=== PATIENT | male | born 1935 | race Two or more races ===

== ENCOUNTER 2018-02-18 20:14 | Inpatient (IN) | payer OTHER, MEDICARE ==
[~2018-02-18] VITALS: Ht 157.5 cm; Wt 68.5 kg
[2018-02-18] MEDS ORDERED: DIPH25CA83 PO (20:45)
[2018-02-18] MEDS ORDERED: OMEP20CA10 PO (20:45)
[2018-02-18] MEDS ORDERED: ATOR40TA PO (20:45)
[2018-02-18] MEDS ORDERED: IBUP-1953 PO (20:45)
[2018-02-18] MEDS ORDERED: MAGN400O6 PO (20:45)
[2018-02-18] MEDS ORDERED: BISA10SU61 RC (20:45)
[2018-02-18] MEDS ORDERED: ACET-2154 PO (20:45)
[2018-02-18] MEDS ORDERED: TAMS-3 PO (20:45)
[2018-02-18] MEDS ORDERED: BENZ1LOZ58 MM (20:45)
[2018-02-18] MEDS ORDERED: FINA5TAB11 PO (20:45)
[2018-02-18] MEDS ORDERED: HYDR-3972 PO (20:45)
[2018-02-18] MEDS ORDERED: DOCU-141 PO (20:45)
[2018-02-18] MEDS ORDERED: PANT40TA2 PO (20:45)
[2018-02-18] MEDS ORDERED: SENN-18 PO (20:45)
[2018-02-18] MEDS ORDERED: AZEL6DRO5 OP (20:45)
[2018-02-18] MEDS ORDERED: MAG355OR18 PO (20:45)
[2018-02-18] MEDS ORDERED: ASPI-612 PO (20:45)
[2018-02-18] MEDS ORDERED: CLON0.1T PO (20:45)
[2018-02-18] MEDS ORDERED: Z GUARD REMEDY PASTE 57 GM TUBE TOP PRN (21:00)
[2018-02-18] MEDS ORDERED: ACETAMINOPHEN 325 MG TABLET PO PRN (21:15)
[2018-02-18 21:25] VITALS: BP 152/72
[2018-02-18] MEDS: HYDROCODONE/APAP 5-325MG TABLET PO PRN (23:18)
--- NOTE | 2018-02-19 00:02 | NUR ---
received from [facility] an 82 year old male with admitting diagnosis of Left total knee arthroplasty. [id number] able to follow commands. patient speaks azeri only. Left knee dressing intact, antwon in placed, no drainage noted, slightly swollen. medicated with [place] as ordered. fall precautions maintained. call reyes within results. will monitor patient.
--- NOTE | 2018-02-19 06:59 | NUR ---
quiet night. slept most of the shift. needs attended. kept comfortable. voiding but sometimes gets incontinent at times. kept clean and dry.
[2018-02-19 08:09] VITALS: BP 166/86
[2018-02-19] MEDS: ASPIRIN 325 MG TABLET PO SCH ×2 (09:27→17:20)
[2018-02-19] MEDS: FINASTERIDE 5 MG TABLET PO SCH (09:28)
[2018-02-19] MEDS: DOCUSATE SODIUM 100 MG CAPSULE PO SCH ×2 (09:28→17:21)
--- NOTE | 2018-02-19 09:51 | NUR ---
INTERDISCIPLINARY TEAM CONFERENCE
--- NOTE | 2018-02-19 10:21 | NUR ---
WOUND CARE CONSULT WOUND CARE RECEIVED CONSULT FOR LEFT KNEE INCISION SITE, NO ORDER FOR DRESSING CHANGE FROM [facility]. COVERING MACHINE OPERATOR HELPER SPOKE WITH STAFF NURSE. WOUND CARE WILL DEFER INCISION SITE CARE TO ORTHO MD AT THIS TIME.
[2018-02-19] MEDS: HYDROCODONE/APAP 5-325MG TABLET PO PRN (11:25)
[2018-02-19 15:44] VITALS: BP 139/74
[2018-02-19] MEDS: AMLODIPINE 5 MG TABLET PO SCH (18:11)
--- NOTE | 2018-02-19 18:42 | NUR ---
PATIENT RECEIVED IN BED ASLEEP, EASILY AROUSED. NO ACUTE DISTRESS NOTED, NO COMPLAINTS OF PAIN/DISCOMFORT AT THIS TIME. DRESSING STILL INTACT. ALL NEEDS ATTENDED AND ANTICIPATED. COMFORT MEASURES PROVIDED. PT SESSION TODAY WELL TOLERATED. CALLED [employer] TO OBTAIN ORDER FOR DRESSING CHANGE, ORDERS NOTED AND CARRIED OUT. WILL CONTINUE TO MONITOR CLOSELY.
[2018-02-19 20:39] VITALS: BP 152/70
[2018-02-19] MEDS: PANTOPRAZOLE SODIUM 40 MG TABLET.DR PO SCH (20:49)
[2018-02-19] MEDS: TAMSULOSIN HCL 0.4 MG CAP.SR.24H PO SCH (20:50)
[2018-02-19] MEDS: ATORVASTATIN 40 MG TABLET PO SCH (20:50)
[2018-02-19] MEDS: SENNOSIDES 1 TABLET PO SCH (20:50)
--- NOTE | 2018-02-20 00:16 | NUR ---
Patient received lying in bed comfortably. He is Kazakh speaking. His was at beside and can speak Syriac. Awake, alert, and oriented x 3. No acute distress or SOB. No complain of pain. Med given as ordered. All needs were attended and anticipated. Fall precaution maintained. Two upper side rails up for safety, bed alarm and brake on for safety. Call light within reach. Will continue to monitor.
[2018-02-20] MEDS: HYDROCODONE/APAP 5-325MG TABLET PO PRN ×2 (04:26→10:46)
--- NOTE | 2018-02-20 04:56 | NUR ---
In the hourly round, the patient wasn't sleep, he complained of leg pain and also chest pain without radiation. No acute distress noted. He rated 8 out of 10 on numeric scale for his pain. Denies feeling heaviness on the chest and radiation to left arm and jaw. Patient placed on 2 liter O2 through nasal canula and head of the bed elevated. Per patient states that he has been having chest pain for the past 3 years, also states that he believes the pain from his knee is causing his chest pain. [place] 5-325 was given. vital signs was checked with IL 105, BP131/87, RR 18, O2 sat 96%, T 98.6. SUSAN Caba was called and informed of patient condition, with new orders of STAT EKG, Troponin x1, and cardiology consult in am. Orders noted and carried out, Safety maintained, call light within reach, will continue to monitor.
[2018-02-20 05:31] LABS: BASOPHILS # (AUTO) 0.1 K/uL (0.0-8.0); BASOPHILS % (AUTO) 0.7 % (0.0-2.0); EOSINOPHILS # (AUTO) 0.4 K/uL (0.0-0.7); EOSINOPHILS % (AUTO) 4.1 % (0.0-7.0); HEMATOCRIT 26.7 % (36.7-47.1); HEMOGLOBIN 9.4 g/dL (12.5-16.3); LYMPHOCYTES # (AUTO) 1.9 K/uL (20.0-40.0); MEAN CORPUSCULAR HEMOGLOBIN 31.8 uug (23.8-33.4); MEAN CORPUSCULAR HGB CONC 35 g/dL (32.5-36.3); MEAN CORPUSCULAR VOLUME 90.3 fL (73.0-96.2); MONOCYTES % (AUTO) 11.6 % (0.0-11.0); NEUTROPHILS # (AUTO) 5.4 K/uL (1.8-8.9); NEUTROPHILS % (AUTO) 61.6 % (38.5-71.5); PLATELET COUNT (AUTO) 222 K/uL (152-348); RED BLOOD CELL COUNT(AUTO) 2.95 MIL/uL (4.06-5.63); WHITE BLOOD COUNT (AUTO) 8.7 K/uL (3.6-10.2)
[2018-02-20 05:38] LABS: CARBON DIOXIDE 26 mmol/L (21-32); CHLORIDE 105 mmol/L (98-107); CREATININE 0.9 mg/dL (0.6-1.3); GLUCOSE 131 mg/dL (74-106); POTASSIUM 3.7 mmol/L (3.5-5.1); UREA NITROGEN, BLOOD 18 mg/dL (7-18)
--- NOTE | 2018-02-20 05:43 | NUR ---
The patient was checked again, he is lying on bed comfortably has nasal canula in placed with O2 at 2 Liter. No acute distress, no complain of chest pain or knee pain, vital sign checked again with BP 148/79, CA 98, RR 18, O2 sat 96%, T 98.6. Will continue to monitor.
[2018-02-20 06:07] VITALS: BP 148/79
[2018-02-20 08:27] VITALS: BP 144/72
[2018-02-20] MEDS: DOCUSATE SODIUM 100 MG CAPSULE PO SCH ×2 (09:19→17:26)
[2018-02-20] MEDS: FINASTERIDE 5 MG TABLET PO SCH (09:19)
[2018-02-20] MEDS: MAGNESIUM HYDROXIDE 30 ML LIQUID UDC PO SCH (09:19)
[2018-02-20] MEDS: ASPIRIN 325 MG TABLET PO SCH ×2 (09:19→17:26)
[2018-02-20] MEDS: AMLODIPINE 5 MG TABLET PO SCH (09:19)
[2018-02-20 16:03] VITALS: BP 140/72
--- NOTE | 2018-02-20 18:23 | NUR ---
PATIENT HAS BEEN COOPERATIVE WITH CARE, AND PARTICIPATED IN THERAPY. PATIENT HAD BREAKTHROUGH PAIN DURING THERAPY, BUT HAS RESOLVED AT THIS TIME. CURRENTLY PATIENT IN BED, NO DISTRESS NOTED. BED IN LOW POSITION, SIDE RAILS UP X2. WOUND CARE CONSULT PLACED FOR SKIN TEARS. USED CARE WHEN REMOVING DRESSING, UTILIZED ADHESIVE REMOVER TO AVOID SKIN TEARS.
--- NOTE | 2018-02-20 20:00 | NUR ---
Patient received lying in bed comfortably. He is Angolan speaking. Awake, alert, and oriented x 3. No acute distress or SOB. No complain of pain. Med given as ordered. All needs were attended and anticipated. Fall precaution maintained. Two upper side rails up for safety, bed alarm and brake on for safety. Call light within reach. Will continue to monitor.
[2018-02-20 20:29] VITALS: BP 140/70
[2018-02-20] MEDS: SENNOSIDES 1 TABLET PO SCH (21:45)
[2018-02-20] MEDS: PANTOPRAZOLE SODIUM 40 MG TABLET.DR PO SCH (21:45)
[2018-02-20] MEDS: ATORVASTATIN 40 MG TABLET PO SCH (21:45)
[2018-02-20] MEDS: TAMSULOSIN HCL 0.4 MG CAP.SR.24H PO SCH (21:45)
[2018-02-21 05:40] VITALS: BP 152/71
[2018-02-21] MEDS: FINASTERIDE 5 MG TABLET PO SCH (08:06)
[2018-02-21 08:07] VITALS: BP 147/67
[2018-02-21] MEDS: ASPIRIN 325 MG TABLET PO SCH ×2 (08:07→17:41)
[2018-02-21] MEDS: AMLODIPINE 5 MG TABLET PO SCH (08:07)
[2018-02-21] MEDS: DOCUSATE SODIUM 100 MG CAPSULE PO SCH ×2 (08:07→17:41)
[2018-02-21] MEDS: MAGNESIUM HYDROXIDE 30 ML LIQUID UDC PO SCH (17:41)
[2018-02-21] MEDS: HYDROCODONE/APAP 5-325MG TABLET PO PRN ×2 (17:41→21:36)
--- NOTE | 2018-02-21 18:47 | NUR ---
PATIENT HAS BEEN COOPERATIVE WITH CARE, EXPERIENCED INTERMITTENT PAIN THROUGHOUT THE DAY WHICH WAS RELIEVED BY MEDICATION. CURRENTLY PATIENT IN BED, NO DISTRESS NOTED, BED IN LOW POSITION, SIDE RAILS UP X2, CALL LIGHT WITHIN REACH. PATIENT HAD A DIETARY CONSULT THIS SHIFT, AND RECOMMENDATIONS MADE ACCORDINGLY.
[2018-02-21 20:09] VITALS: BP 137/73
[2018-02-21] MEDS: TAMSULOSIN HCL 0.4 MG CAP.SR.24H PO SCH (21:35)
[2018-02-21] MEDS: SENNOSIDES 1 TABLET PO SCH (21:35)
[2018-02-21] MEDS: PANTOPRAZOLE SODIUM 40 MG TABLET.DR PO SCH (21:35)
[2018-02-21] MEDS: ATORVASTATIN 40 MG TABLET PO SCH (21:35)
[2018-02-22 05:23] VITALS: BP 139/68
[2018-02-22 08:39] VITALS: BP 140/69
[2018-02-22] MEDS: DOCUSATE SODIUM 100 MG CAPSULE PO SCH ×2 (09:07→16:18)
[2018-02-22] MEDS: FINASTERIDE 5 MG TABLET PO SCH (09:07)
[2018-02-22] MEDS: ASPIRIN 325 MG TABLET PO SCH ×2 (09:07→16:18)
[2018-02-22] MEDS: AMLODIPINE 5 MG TABLET PO SCH (09:08)
[2018-02-22] MEDS: NEOMY/BACITRAC/POLYMI OINT 28.35 GM TUBE TOP SCH ×2 (09:11→16:21)
[2018-02-22] MEDS: HYDROCODONE/APAP 5-325MG TABLET PO PRN ×2 (09:25→16:19)
--- NOTE | 2018-02-22 10:48 | NUR ---
SBAR report received, board updated. Pt assessed, no acute distress noted or SOB. Pain reported of 8/10 to left knee, and 10/10 to left toe, c/o gout flair up starting last night. MD fuel distribution system operator paged, left message regarding concern, will follow up. Pt compliant with routine medication administration, including [place] for pain. All comfort and safety measures implemented. Bed in locked and lowest position, side rails up x2. Call light and personal belongings placed within reach. Will continue to monitor.
--- NOTE | 2018-02-22 18:57 | NUR ---
Pt seen by MD, new orders received. No distress during this shift. visiting at bedside. All needs promptly attended to. Call light within reach. Will continue to monitor and endorse to on coming material handler 2nd shift.
[2018-02-22 19:30] VITALS: BP 148/78
--- NOTE | 2018-02-22 20:00 | NUR ---
QUIET,SPEAKS CZECH,NO SPANISH. LEFT TOTAL KNEE DRESSINGS DRY AND INTACT WITH SOME REDNESS NOTED ON THE SIDES,BRUISE NOTED IN THE LEFT INNER THIGH.PT INSTRUCTED NOT TO GET OUT OF BED,PT WEAK UNABLE TO STAND UP.PT USES URINAL.PT IS A FALL PRECAUTION.
[2018-02-22] MEDS: SENNOSIDES 1 TABLET PO SCH (20:12)
[2018-02-22] MEDS: ATORVASTATIN 40 MG TABLET PO SCH (20:12)
[2018-02-22] MEDS: TAMSULOSIN HCL 0.4 MG CAP.SR.24H PO SCH (20:12)
[2018-02-22] MEDS: PANTOPRAZOLE SODIUM 40 MG TABLET.DR PO SCH (20:12)
[2018-02-22] MEDS: OXYCODONE HCL 10 MG TAB.SR.12H PO SCH (20:12)
[2018-02-22] MEDS: MAGNESIUM HYDROXIDE 30 ML LIQUID UDC PO SCH (20:13)
--- NOTE | 2018-02-23 06:40 | NUR ---
SLEPT AT LONG INTERVALS.USES URINAL.NO COMPLAINTS MADE
[2018-02-23 07:15] VITALS: BP 130/76
--- NOTE | 2018-02-23 08:00 | NUR ---
pt seen on rounding. pt vitals stable. no new injuries. pt given meds whole for pain. no sob noted. pt used incentive spirometer to deep breathe. will continue to monitor.
[2018-02-23] MEDS: NEOMY/BACITRAC/POLYMI OINT 28.35 GM TUBE TOP SCH ×2 (09:00→17:23)
[2018-02-23] MEDS: ASPIRIN 325 MG TABLET PO SCH ×2 (09:21→17:23)
[2018-02-23] MEDS: OXYCODONE HCL 10 MG TAB.SR.12H PO SCH ×2 (09:22→20:48)
[2018-02-23] MEDS: FINASTERIDE 5 MG TABLET PO SCH (09:22)
[2018-02-23] MEDS: DOCUSATE SODIUM 100 MG CAPSULE PO SCH ×2 (09:22→17:23)
[2018-02-23] MEDS: AMLODIPINE 5 MG TABLET PO SCH (09:23)
[2018-02-23] MEDS: HYDROCODONE/APAP 10-325 MG TABLET PO PRN ×2 (09:25→17:24)
[2018-02-23 10:10] VITALS: BP_SYST 108; BP_SYST 131; BP_SYST 132; BP_DIAS 59; BP_DIAS 66; BP_DIAS 73
[2018-02-23 16:00] VITALS: BP 118/69
--- NOTE | 2018-02-23 18:02 | NUR ---
pt stable throughout the day. vitals stable. pt encouraged to use incentive spirometer and tolerates. pulse ox normal. no signs of hypoxemia. pt used cpm machine according to PT recommendations. pt given pain meds with machine so pt can tolerate pain. assessed blisters. no signs of bleeding. applied triple antibiotic as scheduled. no signs of drainage. encouraged patient to do own exercises. pt verbalizes understanding. will endorse to tariff clerk nurse.
[2018-02-23] MEDS ORDERED: BISACODYL 5 MG TABLET.DR PO PRN (18:30)
[2018-02-23 20:13] VITALS: BP 132/63
[2018-02-23] MEDS: TAMSULOSIN HCL 0.4 MG CAP.SR.24H PO SCH (20:47)
[2018-02-23] MEDS: ATORVASTATIN 40 MG TABLET PO SCH (20:47)
[2018-02-23] MEDS: SENNOSIDES 1 TABLET PO SCH (20:48)
[2018-02-23] MEDS: PANTOPRAZOLE SODIUM 40 MG TABLET.DR PO SCH (20:48)
[2018-02-24 05:23] VITALS: BP 139/68
--- NOTE | 2018-02-24 06:39 | NUR ---
Pt SLEPT WELL THROUGHOUT THE NIGHT, CONTINUES TO BE COMPLIANT WITH MEDS AND CARE STAFF THIS MORNING. PICTURES OF WOUNDS WERE TAKEN AND PLACED IN CHART, NO DISTRESS NOTED, DENIES PAIN, DRESSING ON SURGICAL SITE CHANGED THIS MORNING. IN STABLE CONDITION. EMPHASIZED SAFETY, BED AT LOWEST POSITION WITH WHEELS LOCKED AND SIDE RAILS UP X 2.
--- NOTE | 2018-02-24 08:12 | NUR ---
I agree Addendum: 02/24/18 at 0813 by SHERICE BARNETT OT Amended: Links added.
--- NOTE | 2018-02-24 08:13 | NUR ---
I agree Addendum: 02/24/18 at 0814 by SHERICE BARNETT OT Amended: Links added.
[2018-02-24 08:26] VITALS: BP 127/71
[2018-02-24] MEDS: DOCUSATE SODIUM 100 MG CAPSULE PO SCH ×2 (08:27→16:26)
[2018-02-24] MEDS: ASPIRIN 325 MG TABLET PO SCH ×2 (08:27→16:26)
[2018-02-24] MEDS: FINASTERIDE 5 MG TABLET PO SCH (08:28)
[2018-02-24] MEDS: AMLODIPINE 5 MG TABLET PO SCH (08:28)
[2018-02-24] MEDS: OXYCODONE HCL 10 MG TAB.SR.12H PO SCH ×2 (08:29→20:30)
[2018-02-24] MEDS: NEOMY/BACITRAC/POLYMI OINT 28.35 GM TUBE TOP SCH ×2 (08:33→17:09)
--- NOTE | 2018-02-24 10:29 | NUR ---
SBAR report received, board updated. Pt assessed, no acute distress noted, reports pain upon ambulation. Routinely scheduled pain medication administered per orders, medicated prior to participating with therapy. Pt compliant with all routine medication administration and nursing care. Plan of care for today discussed. Bed in locked and lowest position, with side rails up x2. Call light within reach. All comfort and safety measures met. Will continue to monitor.
[2018-02-24] MEDS: MAGNESIUM HYDROXIDE 30 ML LIQUID UDC PO SCH (15:05)
--- NOTE | 2018-02-24 17:46 | NUR ---
All Pt safety and comfort needs attended to promptly. No change in pt condition. Family visiting at bedside. MOM administered per PRN constipation orders. Call light placed within reach. Will continue to monitor and endorse to oncoming overnight houseperson.
[2018-02-24 20:13] VITALS: BP 140/64
[2018-02-24] MEDS: TAMSULOSIN HCL 0.4 MG CAP.SR.24H PO SCH (20:28)
[2018-02-24] MEDS: PANTOPRAZOLE SODIUM 40 MG TABLET.DR PO SCH (20:28)
[2018-02-24] MEDS: ATORVASTATIN 40 MG TABLET PO SCH (20:28)
[2018-02-24] MEDS: SENNOSIDES 1 TABLET PO SCH (20:28)
--- NOTE | 2018-02-24 23:42 | NUR ---
RECEIVED Pt IN BED, AWAKE AND WATCHING TV, A/O X 4. REPORTS A 5/10 PAIN ON LEFT KNEE WHERE SURGICAL INCISION IS LOCATED, NO PRN MEDS GIVEN FOR PAIN SINCE Pt RECEIVE OXYCONTIN 10 MG PO Q12HR. Pt TOLERATED MEDS WELL, CONTINUES TO BE COMPLIANT WITH STAFF AND PLAN OF CARE. EMPHASIZED SAFETY, BED AT LOWEST POSITION WITH WHEELS LOCKED AN SIDE RAILS UP X 2. CALL LIGHT WITHIN REACH.
[2018-02-25 05:50] VITALS: BP 148/73
[2018-02-25] MEDS: HYDROCODONE/APAP 10-325 MG TABLET PO PRN (06:26)
--- NOTE | 2018-02-25 06:45 | NUR ---
NURSING STAFF FOUND Pt WANDERING ON HALLWAY WITH HIS WALKER. WHEN ASKED IF HE NEEDED ASSISTANCE, Pt WAS NOTED CONFUSED AND ASKING, "WHERE AM I? WHO BROUGHT ME HERE?" Pt DID NOT HAVE ANY PREVIOUS SIGNS AND SYMPTOMS OF DISORIENTATION AND/OR CONFUSION. Pt WAS ASSESSED, NO INDICATION OF INJURIES TO THE HEAD. NOTIFIED DR. WEBB OF RECENT FINDINGS, RECEIVED ORDERS TO COLLECT URINE FOR UA/C&S. NURSE COLLECTED URINE SPECIMEN AND SENT TO THE LAB. WILL ENDORSE TO DAY SHIFT TO MONITOR RESULTS. Pt COMPLAINED OF 8/10 PAIN ON SURGICAL INCISION ON THE LEFT KNEE. ADMINISTERED NORCO 10-325 PO PRN FOR PAIN. Pt DID NOT HAVE A BOWEL MOVEMENT THROUGHOUT SHIFT, MILK OF MAGNESIA ADMINISTERED BY DAY SHIFT YESTERDAY WAS NOT EFFECTIVE. ADMINISTERED BISACODYL 10 MG PO PRN FOR CONSTIPATION. WILL ENDORSE TO DAY SHIFT NURSE TO MONITOR.
[2018-02-25 07:33] VITALS: BP 175/63
[2018-02-25] MEDS: ASPIRIN 325 MG TABLET PO SCH ×2 (08:52→16:47)
[2018-02-25] MEDS: OXYCODONE HCL 10 MG TAB.SR.12H PO SCH ×2 (08:53→20:22)
[2018-02-25] MEDS: AMLODIPINE 5 MG TABLET PO SCH (08:53)
[2018-02-25] MEDS: DOCUSATE SODIUM 100 MG CAPSULE PO SCH ×2 (08:55→16:47)
[2018-02-25] MEDS: NEOMY/BACITRAC/POLYMI OINT 28.35 GM TUBE TOP SCH ×2 (08:55→16:52)
[2018-02-25] MEDS: FINASTERIDE 5 MG TABLET PO SCH (08:55)
[2018-02-25 10:55] LABS: *BILIRUBIN,URIN NEGATIVE (NEGATIVE); *BLOOD, URINE NEGATIVE (NEGATIVE); *CLARITY,URINE CLEAR (CLEAR); *COLOR,URINE YELLOW (YELLOW); *KETONES,URINE NEGATIVE (NEGATIVE); *PROTEIN,URINE TRACE (NEGATIVE); *UROBILINOGEN,URINE 0.2 E.U./dl (NORMAL); LEUKOCYTE ESTERASE ,URINE NEGATIVE (NEGATIVE); NITRITE, URINE NEGATIVE (NEGATIVE); UGLUCOSE NEGATIVE (NEGATIVE)
[2018-02-25 11:01] LABS: BACTERIA,URINE FEW /HPF (NONE SEEN); RBC,URINE 0-3 /HPF (0-3); SQUAMOUS EPITHELIAL CELL,UR FEW /HPF (NONE SEEN); WBC,URINE 0-3 /HPF (0-3)
[2018-02-25 15:06] VITALS: BP 118/62
[2018-02-25] MEDS: ATORVASTATIN 40 MG TABLET PO SCH (20:20)
[2018-02-25] MEDS: TAMSULOSIN HCL 0.4 MG CAP.SR.24H PO SCH (20:22)
[2018-02-25] MEDS: PANTOPRAZOLE SODIUM 40 MG TABLET.DR PO SCH (20:22)
[2018-02-25] MEDS: SENNOSIDES 1 TABLET PO SCH (20:22)
[2018-02-25 20:23] VITALS: BP 157/70
--- NOTE | 2018-02-25 21:05 | NUR ---
1900 PT RESTING IN ROOM . PT APPEARS COMFORTABLE. 2100 PT WATCHING TV Addendum: 02/26/18 at 0103 by Irina Kay RN 2300 pt ambulated to restroom . pt tolerated well with fww. 0100 pt resting in room Addendum: 02/26/18 at 0546 by Irina Kay RN 0300 pt urinated x1. stand by assist, 0545 pt asleep.
[2018-02-25 21:31] VITALS: BP 139/86
[2018-02-26 05:51] VITALS: BP 132/73
[2018-02-26 07:20] LABS: BASOPHILS # (AUTO) 0.1 K/uL (0.0-8.0); EOSINOPHILS # (AUTO) 0.3 K/uL (0.0-0.7); MEAN CORPUSCULAR VOLUME 90.2 fL (73.0-96.2)
[2018-02-26 07:26] LABS: ALANINE AMINOTRANSFERASE 38 U/L (16-63); ALKALINE PHOSPHATASE 74 U/L (50-136); ASPARTATE AMINOTRANSFERASE 26 U/L (15-37); BILIRUBIN,TOTAL 1.1 mg/dL (0.2-1.0); CARBON DIOXIDE 28 mmol/L (21-32); CHLORIDE 100 mmol/L (98-107); CHOLESTEROL 93 mg/dL (<200); CREATININE 1.1 mg/dL (0.6-1.3); GLUCOSE 125 mg/dL (74-106); HDL CHOLESTEROL 34 mg/dL (40-60); MAGNESIUM 2.1 mg/dL (1.8-2.4); POTASSIUM 4.6 mmol/L (3.5-5.1); TOTAL PROTEIN, SERUM 7.2 g/dL (6.4-8.2); TRIGLYCERIDES 71 MG/DL (30-150); UREA NITROGEN, BLOOD 26 mg/dL (7-18)
[2018-02-26 07:27] LABS: IRON, SERUM 36 ug/dL (50-175)
[2018-02-26 07:42] LABS: BASOPHILS % (AUTO) 0.7 % (0.0-2.0); EOSINOPHILS % (AUTO) 2.5 % (0.0-7.0); HEMATOCRIT 29.3 % (36.7-47.1); HEMOGLOBIN 10.2 g/dL (12.5-16.3); LYMPHOCYTES # (AUTO) 2.3 K/uL (20.0-40.0); LYMPHOCYTES % (AUTO) 17.9 % (20.5-51.5); MEAN CORPUSCULAR HEMOGLOBIN 31.3 uug (23.8-33.4); MEAN CORPUSCULAR HGB CONC 35 g/dL (32.5-36.3); MONOCYTES # (AUTO) 1.2 K/uL (2.0-10.0); MONOCYTES % (AUTO) 9.3 % (0.0-11.0); NEUTROPHILS # (AUTO) 8.8 K/uL (1.8-8.9); NEUTROPHILS % (AUTO) 69.6 % (38.5-71.5); RED BLOOD CELL COUNT(AUTO) 3.25 MIL/uL (4.06-5.63)
[2018-02-26 07:44] LABS: PLATELET COUNT (AUTO) 476 K/uL (152-348); WHITE BLOOD COUNT (AUTO) 12.6 K/uL (3.6-10.2)
[2018-02-26 08:00] VITALS: BP 126/60
[2018-02-26] MEDS: ASPIRIN 325 MG TABLET PO SCH ×2 (08:34→17:02)
[2018-02-26] MEDS: DOCUSATE SODIUM 100 MG CAPSULE PO SCH ×2 (08:34→17:02)
[2018-02-26] MEDS: AMLODIPINE 5 MG TABLET PO SCH (08:35)
[2018-02-26] MEDS: FINASTERIDE 5 MG TABLET PO SCH (08:35)
[2018-02-26] MEDS: OXYCODONE HCL 10 MG TAB.SR.12H PO SCH ×2 (08:36→21:14)
[2018-02-26] MEDS: NEOMY/BACITRAC/POLYMI OINT 28.35 GM TUBE TOP SCH ×2 (08:40→17:02)
--- NOTE | 2018-02-26 10:15 | NUR ---
SBAR report received, board updated. Pt assessed, denies pain and no SOB evident. Incisional wound care provided as ordered to left knee. Incision appears to be healing well with no s/s of infection. Pt assisted up for therapy, BP dropped to 86/46 while sitting for breakfast. BP up to 170/78, hr 89, O2 95% on RA upon returning to lay down in bed. MD notified, no new orders received. Pt complaint with all routinely scheduled medications. Bed in locked and lowest position with side rails up x2. Call light placed within reach. Will continue to monitor and endorse to oncoming media/instructional designer.
--- NOTE | 2018-02-26 15:51 | NUR ---
INTERDISCIPLINARY TEAM CONFERENCE
[2018-02-26 16:04] VITALS: BP 149/70
--- NOTE | 2018-02-26 18:37 | NUR ---
No change in Pt status. All comfort and safety needs promptly attended to throughout this shift. Family currently visiting at bedside. Pt assisted to restroom for voiding and BMx1. Call light placed within reach. Pt seen by MD, no new orders received at this time. Will continue to monitor and endorse to oncoming night nurse.
[2018-02-26] MEDS ORDERED: hydrALAZINE HCL 25 MG TABLET PO PRN (19:15)
[2018-02-26 19:30] VITALS: BP 130/69
[2018-02-26] MEDS: ATORVASTATIN 40 MG TABLET PO SCH (21:13)
[2018-02-26] MEDS: SENNOSIDES 1 TABLET PO SCH (21:13)
[2018-02-26] MEDS: PANTOPRAZOLE SODIUM 40 MG TABLET.DR PO SCH (21:16)
[2018-02-26] MEDS: MIDODRINE HCL 5 MG TABLET PO SCH (21:16)
[2018-02-26] MEDS: TAMSULOSIN HCL 0.4 MG CAP.SR.24H PO SCH (21:22)
[2018-02-27 00:10] VITALS: BP 135/67
--- NOTE | 2018-02-27 06:40 | NUR ---
Pt SLEPT WELL THROUGHOUT THE NIGHT, CONTINUES TO BE COMPLIANT WITH MEDS AND CARE STAFF THIS MORNING. NO DISTRESS NOTED, DENIES PAIN. IN STABLE CONDITION. EMPHASIZED SAFETY, BED AT LOWEST POSITION WITH WHEELS LOCKED AND SIDE RAILS UP X 2.
[2018-02-27 08:17] VITALS: BP 150/70
[2018-02-27] MEDS: MIDODRINE HCL 5 MG TABLET PO SCH ×2 (09:00→20:10)
[2018-02-27] MEDS: ASPIRIN 325 MG TABLET PO SCH ×2 (09:10→17:53)
[2018-02-27] MEDS: OXYCODONE HCL 10 MG TAB.SR.12H PO SCH ×2 (09:12→20:09)
[2018-02-27] MEDS: DOCUSATE SODIUM 100 MG CAPSULE PO SCH ×2 (09:12→17:53)
[2018-02-27] MEDS: FINASTERIDE 5 MG TABLET PO SCH (09:12)
[2018-02-27] MEDS: NEOMY/BACITRAC/POLYMI OINT 28.35 GM TUBE TOP SCH ×2 (09:12→17:56)
[2018-02-27 15:49] VITALS: BP 141/72
[2018-02-27 19:30] VITALS: BP 160/85
[2018-02-27] MEDS: PANTOPRAZOLE SODIUM 40 MG TABLET.DR PO SCH (20:08)
[2018-02-27] MEDS: SENNOSIDES 1 TABLET PO SCH (20:08)
[2018-02-27] MEDS: ATORVASTATIN 40 MG TABLET PO SCH (20:08)
[2018-02-27] MEDS: TAMSULOSIN HCL 0.4 MG CAP.SR.24H PO SCH (20:08)
--- NOTE | 2018-02-27 20:56 | NUR ---
Received pt resting comfortably in bed. Turkish speaking. No acute distress noted. Bed alarm on. Encouraged use of call light. Safety measures maintained. Call light and personal belongings within reach. Will continue to monitor.
[2018-02-28 06:55] VITALS: BP 130/68
[2018-02-28 07:06] VITALS: BP 152/76
[2018-02-28] MEDS: MIDODRINE HCL 5 MG TABLET PO SCH ×2 (09:00→20:35)
[2018-02-28] MEDS: FINASTERIDE 5 MG TABLET PO SCH (09:23)
[2018-02-28] MEDS: DOCUSATE SODIUM 100 MG CAPSULE PO SCH ×2 (09:23→17:27)
[2018-02-28] MEDS: ASPIRIN 325 MG TABLET PO SCH ×2 (09:23→17:26)
[2018-02-28] MEDS: METOPROLOL TARTRATE 25 MG TABLET PO SCH ×2 (09:25→20:35)
[2018-02-28] MEDS: OXYCODONE HCL 10 MG TAB.SR.12H PO SCH ×2 (09:25→20:34)
[2018-02-28] MEDS: NEOMY/BACITRAC/POLYMI OINT 28.35 GM TUBE TOP SCH ×2 (09:37→17:27)
--- NOTE | 2018-02-28 10:25 | NUR ---
SBAR report received, board updated. Pt assessed, SOB or acute distress, upon returning from PT. BP 125/79, HR 105 O2 96% when sitting. VS reevaluated after ambulation, while sitting BP 121/71, HR 135 by machine, manual HR 105. Scheduled Midodrine medication held r/t MD orders. Pt reports pain to left knee incision 8/10 from and during ambulation with therapy. Pain medication administered as scheduled. Pt compliant with all medication administration this morning. Ice packs refilled and placed around knee. Therapist assisted with implementing CPM. Bed in locked and lowest position, with side rails up x2. Bed alarm on. Call light and fluids placed within reach. Will continue to monitor.
[2018-02-28] MEDS: HYDROCODONE/APAP 5-325MG TABLET PO PRN (11:17)
[2018-02-28 16:10] VITALS: BP 119/68
--- NOTE | 2018-02-28 18:25 | NUR ---
All safety and comfort needs met promptly this shift. Incisional dressings changed. Incision shows no s/s of infection. Pt denies pain at this time. Call light placed within reach. Bed alarm on. Will continue to monitor and endorse to oncoming night shift manager.
[2018-02-28 19:30] VITALS: BP 139/63
[2018-02-28] MEDS: TAMSULOSIN HCL 0.4 MG CAP.SR.24H PO SCH (20:33)
[2018-02-28] MEDS: SENNOSIDES 1 TABLET PO SCH (20:33)
[2018-02-28] MEDS: ATORVASTATIN 40 MG TABLET PO SCH (20:34)
[2018-02-28] MEDS: PANTOPRAZOLE SODIUM 40 MG TABLET.DR PO SCH (20:34)
--- NOTE | 2018-03-01 06:33 | NUR ---
Pt SLEPT WELL THROUGHOUT THE NIGHT, CONTINUES TO BE COMPLIANT WITH MEDS AND CARE STAFF. HELD MIDODRINE LAST NIGHT DUE TO ELEVATED BLOOD PRESSURE. TOLERATED OTHER MEDS WELL. NO PRN PAIN MEDS GIVEN, Pt IN STABLE CONDITION.
--- NOTE | 2018-03-01 07:57 | NUR ---
SBAR report received, board updated. Pt assessed, no acute distress noted. All comfort and safety measures met at this time. Plan for today discussed. Bed in locked and lowest position with side rails up x2. Call light placed within reach. Will continue to monitor.
[2018-03-01 08:26] VITALS: BP 136/67
[2018-03-01] MEDS: DOCUSATE SODIUM 100 MG CAPSULE PO SCH ×2 (08:48→16:47)
[2018-03-01] MEDS: ASPIRIN 325 MG TABLET PO SCH ×2 (08:48→16:47)
[2018-03-01] MEDS: FINASTERIDE 5 MG TABLET PO SCH (08:48)
[2018-03-01] MEDS: MIDODRINE HCL 5 MG TABLET PO SCH ×2 (08:49→20:37)
[2018-03-01] MEDS: METOPROLOL TARTRATE 25 MG TABLET PO SCH ×2 (08:49→20:37)
[2018-03-01] MEDS: OXYCODONE HCL 10 MG TAB.SR.12H PO SCH ×2 (08:51→20:36)
[2018-03-01] MEDS: NEOMY/BACITRAC/POLYMI OINT 28.35 GM TUBE TOP SCH ×2 (08:55→18:15)
[2018-03-01] MEDS: HYDROCODONE/APAP 5-325MG TABLET PO PRN (16:48)
--- NOTE | 2018-03-01 18:36 | NUR ---
Pt has remained in stable condition throughout this shift. Incisional wound care provided as ordered. No s/s of infection. All safety and comfort needs met promptly. Call light placed within reach. Will continue to monitor and endorse to on coming material handler 2nd shift.
[2018-03-01 19:30] VITALS: BP 127/65
--- NOTE | 2018-03-01 19:50 | NUR ---
Pt sitting on the bed. Family at bedside. AAO x2. Malay speaking. No acute distress noted. Pt uses urinal to void. Voiding clear yellow colored urine. Safety measures maintained. Bed alarm on. Will continue to monitor.
[2018-03-01] MEDS: PANTOPRAZOLE SODIUM 40 MG TABLET.DR PO SCH (20:35)
[2018-03-01] MEDS: ATORVASTATIN 40 MG TABLET PO SCH (20:35)
[2018-03-01] MEDS: TAMSULOSIN HCL 0.4 MG CAP.SR.24H PO SCH (20:36)
[2018-03-01] MEDS: SENNOSIDES 1 TABLET PO SCH (20:36)
[2018-03-02] MEDS: FINASTERIDE 5 MG TABLET PO SCH (08:14)
[2018-03-02] MEDS: ASPIRIN 325 MG TABLET PO SCH ×2 (08:14→16:08)
[2018-03-02] MEDS: DOCUSATE SODIUM 100 MG CAPSULE PO SCH ×2 (08:14→16:08)
[2018-03-02] MEDS: MIDODRINE HCL 5 MG TABLET PO SCH ×2 (08:15→20:40)
[2018-03-02] MEDS: METOPROLOL TARTRATE 25 MG TABLET PO SCH ×2 (08:15→20:44)
[2018-03-02] MEDS: OXYCODONE HCL 10 MG TAB.SR.12H PO SCH ×2 (08:17→20:39)
[2018-03-02] MEDS: NEOMY/BACITRAC/POLYMI OINT 28.35 GM TUBE TOP SCH ×2 (08:22→16:08)
--- NOTE | 2018-03-02 08:31 | NUR ---
SBAR report received, board updated. Pt assessed, no acute distress noted. Pt compliant with all morning medications, held BP med. All safety and comfort needs met. Pt reports a 5/10 pain at this time. Bed in locked and lowest position with side rails up x2. Call light within reach. Will continue to monitor.
[2018-03-02 08:36] VITALS: BP 135/65
--- NOTE | 2018-03-02 12:25 | NUR ---
I agree Addendum: 03/02/18 at 1226 by SHERICE BARNETT OT Amended: Links added.
--- NOTE | 2018-03-02 12:26 | NUR ---
I agree Addendum: 03/02/18 at 1227 by SHERICE BARNETT OT Amended: Links added.
[2018-03-02 17:49] LABS: BASOPHILS # (AUTO) 0.1 K/uL (0.0-8.0); BASOPHILS % (AUTO) 0.8 % (0.0-2.0); EOSINOPHILS # (AUTO) 0.3 K/uL (0.0-0.7); EOSINOPHILS % (AUTO) 2.9 % (0.0-7.0); HEMATOCRIT 32.5 % (36.7-47.1); HEMOGLOBIN 11.1 g/dL (12.5-16.3); LYMPHOCYTES # (AUTO) 1.9 K/uL (20.0-40.0); LYMPHOCYTES % (AUTO) 17.2 % (20.5-51.5); MEAN CORPUSCULAR HEMOGLOBIN 30.9 uug (23.8-33.4); MEAN CORPUSCULAR HGB CONC 34 g/dL (32.5-36.3); MEAN CORPUSCULAR VOLUME 90.6 fL (73.0-96.2); MONOCYTES # (AUTO) 0.9 K/uL (2.0-10.0); MONOCYTES % (AUTO) 8.4 % (0.0-11.0); NEUTROPHILS # (AUTO) 7.9 K/uL (1.8-8.9); NEUTROPHILS % (AUTO) 70.7 % (38.5-71.5); PLATELET COUNT (AUTO) 535 K/uL (152-348); RED BLOOD CELL COUNT(AUTO) 3.58 MIL/uL (4.06-5.63); WHITE BLOOD COUNT (AUTO) 11.2 K/uL (3.6-10.2)
[2018-03-02 18:02] LABS: CARBON DIOXIDE 25 mmol/L (21-32); CHLORIDE 103 mmol/L (98-107); CREATININE 1.1 mg/dL (0.6-1.3); GLUCOSE 130 mg/dL (74-106); POTASSIUM 4.4 mmol/L (3.5-5.1); UREA NITROGEN, BLOOD 31 mg/dL (7-18)
[2018-03-02 20:20] VITALS: BP 109/65
[2018-03-02] MEDS: ATORVASTATIN 40 MG TABLET PO SCH (20:38)
[2018-03-02] MEDS: TAMSULOSIN HCL 0.4 MG CAP.SR.24H PO SCH (20:38)
[2018-03-02] MEDS: SENNOSIDES 1 TABLET PO SCH (20:39)
[2018-03-02] MEDS: PANTOPRAZOLE SODIUM 40 MG TABLET.DR PO SCH (20:41)
[2018-03-03 05:10] VITALS: BP 118/64
--- NOTE | 2018-03-03 05:30 | NUR ---
Patient slept well throughout the shift , medications given , patient has no signs of distress , vital signs stable , patient used the urinal x 2 during the shift , no BM during shift , dressing was changed and no signs of infection . Bed in low position , bed locked and brake on ,3 side rails up , patient was cam and cooperative throughout shift
[2018-03-03 08:14] VITALS: BP 114/66
[2018-03-03] MEDS: ASPIRIN 325 MG TABLET PO SCH ×2 (08:46→16:55)
[2018-03-03] MEDS: DOCUSATE SODIUM 100 MG CAPSULE PO SCH ×2 (08:46→16:55)
[2018-03-03] MEDS: METOPROLOL TARTRATE 25 MG TABLET PO SCH ×2 (08:47→20:14)
[2018-03-03] MEDS: FINASTERIDE 5 MG TABLET PO SCH (08:48)
[2018-03-03] MEDS: OXYCODONE HCL 10 MG TAB.SR.12H PO SCH ×2 (08:48→20:16)
[2018-03-03] MEDS: NEOMY/BACITRAC/POLYMI OINT 28.35 GM TUBE TOP SCH ×2 (08:50→16:56)
[2018-03-03] MEDS: MIDODRINE HCL 5 MG TABLET PO SCH ×2 (08:50→20:15)
[2018-03-03 20:04] VITALS: BP 120/65
[2018-03-03] MEDS: SENNOSIDES 1 TABLET PO SCH (20:13)
[2018-03-03] MEDS: ATORVASTATIN 40 MG TABLET PO SCH (20:13)
[2018-03-03] MEDS: TAMSULOSIN HCL 0.4 MG CAP.SR.24H PO SCH (20:13)
[2018-03-03] MEDS: PANTOPRAZOLE SODIUM 40 MG TABLET.DR PO SCH (20:14)
[2018-03-04 05:26] VITALS: BP 110/62
--- NOTE | 2018-03-04 06:01 | NUR ---
Patient slept well throughout the night , no signs of distress , no pain reported , vital signs stable . Routine medications given at 2100 , Bed is in low position , is locked and 3 side rails up , call light is on and is nearby for patient .
[2018-03-04 08:00] VITALS: BP 132/77
[2018-03-04] MEDS: FINASTERIDE 5 MG TABLET PO SCH (09:10)
[2018-03-04] MEDS: DOCUSATE SODIUM 100 MG CAPSULE PO SCH (09:10)
[2018-03-04] MEDS: METOPROLOL TARTRATE 25 MG TABLET PO SCH (09:11)
[2018-03-04] MEDS: ASPIRIN 325 MG TABLET PO SCH (09:11)
[2018-03-04 09:12] VITALS: BP 132/77
[2018-03-04] MEDS: NEOMY/BACITRAC/POLYMI OINT 28.35 GM TUBE TOP SCH (09:12)
[2018-03-04] MEDS: MIDODRINE HCL 5 MG TABLET PO SCH (09:12)
[2018-03-04] MEDS: OXYCODONE HCL 10 MG TAB.SR.12H PO SCH (09:12)
--- NOTE | 2018-03-04 16:42 | NUR ---
pt discharged at 1300. no signs of complications. pt family given discharge instructions along with prescriptions for discharge. pt family understands plan of care. pt vitals assessed and stable. pt wound photo taken and placed in chart. pt signed discharge instructions and belongings list. family took patient home. no signs of acute during discharge.
== END 2018-03-04 17:00 | disposition home health service (06) | DRG 862 ==
PROVIDERS: ADMIT Physical Medicine & Rehabilitation Pain Medicine; ATTEND Physical Medicine & Rehabilitation Pain Medicine
DX: Z47.1 Aftercare following joint replacement surgery (principal); D68.59 Other primary thrombophilia; I45.2 Bifascicular block; D64.9 Anemia, unspecified; I10 Essential (primary) hypertension; Z96.652 Presence of left artificial knee joint; I25.10 Atherosclerotic heart disease of native coronary artery without angina pectoris; M19.90 Unspecified osteoarthritis, unspecified site; N40.0 Benign prostatic hyperplasia without lower urinary tract symptoms; M81.0 Age-related osteoporosis without current pathological fracture; E78.5 Hyperlipidemia, unspecified; Z86.73 Personal history of transient ischemic attack (TIA), and cerebral infarction without residual deficits; E61.1 Iron deficiency; I70.0 Atherosclerosis of aorta; I95.1 Orthostatic hypotension; R00.0 Tachycardia, unspecified; R00.2 Palpitations
CPT/HCPCS: 36415; 70030-TC; 71045; 83550; 83735; 84100; 85025; 87086; 92523; 92526; 92610; 93005; 97110; 97112; 97116; 97165; 97530; 97535; A4663